=== PATIENT | male | born 1965 | race Caucasian/White ===

== ENCOUNTER → 2019-04-02 | Outpatient (CLI) | payer BC | LOC: COL.RAD 09:32 | DX: K76.0 Fatty (change of) liver, not elsewhere classified (principal) ==

== ENCOUNTER 2021-02-28 12:44 | Outpatient (CLI) | payer BC ==
[~2021-02-28] VITALS: Ht 177.8 cm; Wt 97.7 kg
[2021-02-28] VITALS (8 sets, daily range): BP systolic 136–150; BP diastolic 69–79; PULSE 80–95; TEMP 99–99.2
[2021-02-28] MEDS ORDERED: LIPITOR 40MG TA40 MG PO (14:13)
[2021-02-28] MEDS ORDERED: SINGULAIR 110 MG/TAB PO (14:14)
[2021-02-28] MEDS ORDERED: NORVASC 10MG10 MG PO (14:14)
[2021-02-28] MEDS ORDERED: HCTZ12.5TAB PO (14:14)
[2021-02-28] MEDS ORDERED: EPA FISH OIL1 SGL PO (14:15)
== END 2021-02-28 15:33 | disposition home or self-care (01) ==
LOC: EUO 12:44
DX: J02.9 Acute pharyngitis, unspecified (principal)
CPT/HCPCS: M0245

== ENCOUNTER → 2024-01-14 | Outpatient (CLI) | payer BC ==
[~2024-01-14] MED LIST: EPA FISH OIL1 SGL PO; HCTZ12.5TAB PO; LIPITOR 40MG TA40 MG PO; NORVASC 10MG10 MG PO; SINGULAIR 110 MG/TAB PO
== END ==
LOC: COL.RAD 09:57
DX: R74.01 Elevation of levels of liver transaminase levels (principal)